=== PATIENT | female | born 1995 ===

== ENCOUNTER → 2018-10-28 | Outpatient (REF) | payer OTHER ==
[2018-10-28 17:57] LABS: INFLUENZA A AMPLIFICATION NEGATIVE (NEGATIVE); INFLUENZA B AMPLIFICATION NEGATIVE (NEGATIVE)
== END ==
LOC: M LAB REF 11:10
PROVIDERS: ATTEND Physician Assistant
DX: J11.1 Influenza due to unidentified influenza virus with other respiratory manifestations (principal)